=== PATIENT | male | born 1940 | race Caucasian/White ===

== ENCOUNTER 2017-04-25 09:13 | Inpatient (IN) | payer MEDICARE ==
[~2017-04-25] VITALS: Ht 175.3 cm; Wt 98.7 kg
[2017-04-25] VITALS (21 sets, daily range): BP systolic 128–170; BP diastolic 65–98; PULSE 49–69; RESP 18–26; TEMP 97.6–98; O2SAT 95–97
[2017-04-25] MEDS ORDERED: IODIXANOL 320 MG/ML 10 ML VIAL (for Rad CT) IVCONTRAST ONE (09:14)
[2017-04-25 09:27] LABS: I-STAT POTASSIUM 4.4 MMOL/L (3.5-4.9); I-STAT SODIUM 141 MMOL/L (138-146)
[2017-04-25 09:30] LABS: AUTOMATED NEUTROPHIL # 5.2 TH/MM3 (1.8-7.7); BASOPHIL % 0.3 % (0.0-2.0); EOSINOPHIL # 0.2 TH/MM3 (0-0.4); EOSINOPHIL % 2.8 % (0.0-4.0); HEMATOCRIT 41.7 % (39.0-51.0); HEMO FLAGS DIFF FINAL; LYMPH % 27.3 % (9.0-44.0); LYMPHOCYTE # 2.2 TH/MM3 (1.0-4.8); MEAN CELL VOLUME 92.5 FL (80.0-100.0); MEAN CORPUSCULAR HEMOGLOBIN 31.2 PG (27.0-34.0); MEAN CORPUSCULAR HGB CONC 33.7 % (32.0-36.0); MONO % 5.8 % (0.0-8.0); NEUT % 63.8 % (16.0-70.0); PLATELET COUNT 140 TH/MM3 (150-450); RED BLOOD COUNT 4.51 MIL/MM3 (4.50-5.90); RED CELL DISTRIBUTION WIDTH 12.8 % (11.6-17.2); WHITE BLOOD COUNT 8.1 TH/MM3 (4.0-11.0)
--- NOTE | 2017-04-25 09:31 | RADRPT ---
EXAM DATE/TIME: 04/25/2017 09:13 [facility] COMPARISON: No previous studies available for comparison. INDICATIONS : Stroke alert, slurred speech. RADIATION DOSE: 56.35 CTDIvol (mGy) This report was called to Dr. Warner at 0928. MEDICAL HISTORY : Non-responsive. SURGICAL HISTORY : Non-responsive. ENCOUNTER: Initial ACUITY: 1 day PAIN SCALE: Non-responsive LOCATION: chest TECHNIQUE: Multiple contiguous axial images were obtained of the head. Using automated exposure control and adj ustment of the mA and/or kV according to patient size, radiation dose was kept as low as reasonably a chievable to obtain optimal diagnostic quality images. DICOM format image data is available electro nically for review and comparison. FINDINGS: CEREBRUM: Mild diffuse cerebral volume loss. The ventricles are normal for age. No evidence of midline shift, mass lesion, hemorrhage or acute infarction. No extra-axial fluid collections are seen. POSTERIOR FOSSA: The cerebellum and brainstem are intact. The 4th ventricle is midline. The cerebellopontine angle i s unremarkable. EXTRACRANIAL: The visualized portion of the orbits is intact. SKULL: The calvaria is intact. No evidence of skull fracture. CONCLUSION: 1. No acute intracranial abnormality. Francisco Stone MD on April 25, 2017 at 9:27 Board Certified Radiologist. This report was verified electronically.
[2017-04-25 09:40] LABS: APTT (PATIENT) 25.9 SEC (24.3-30.1); PROTHROMBIN TIME - PATIENT 10.6 SEC (9.8-11.6)
[2017-04-25] MEDS ORDERED: ASPIRIN 325 MG TAB PO ONE ×2 (09:45→11:45)
[2017-04-25] MEDS ORDERED: VERAPAMIL HCL 5 MG/2 ML VIAL ONE (09:47)
[2017-04-25] MEDS ORDERED: ASPI81CH37 CHEW (09:51)
[2017-04-25] MEDS ORDERED: SIMV40TA PO (09:51)
[2017-04-25] MEDS ORDERED: BISO10TA2 PO (09:51)
[2017-04-25] MEDS ORDERED: FENO134C PO (09:51)
[2017-04-25] MEDS ORDERED: TAMS0.4C4 PO (09:51)
[2017-04-25] MEDS ORDERED: MIDAZOLAM HCL 2 MG/2 ML VIAL ONE (09:54)
[2017-04-25 10:04] LABS: CREATINE KINASE 51 U/L (39-308)
--- NOTE | 2017-04-25 10:04 | RADRPT ---
EXAM DATE/TIME: 04/25/2017 09:13 [facility] COMPARISON: No previous studies available for comparison. INDICATIONS : Stroke alert, slurred speech. IV CONTRAST: 50 cc Visipaque (iodixanol) IV ; Cumulative dose for multiple exams. RADIATION DOSE: 15.25 CTDIvol (mGy) ; Combined studies MEDICAL HISTORY : Non-responsive. SURGICAL HISTORY : Non-responsive. ENCOUNTER: Initial ACUITY: 1 day PAIN SCALE: Non-responsive LOCATION: neck Elevated flow velocities and ICA/CCA ratios have been found to correlate with increased degrees of vessel stenosis, calculated as percentage of diameter relative to a normal segment of distal ICA/CCA. TECHNIQUE: Volumetric scanning was performed using a multirow detector CT scanner. The data was post processed with a variety of visualization algorithms including full-volume maximum intensity projection, multip lanar sliding thin-slab reformation, curved-planar reformation, and surface-rendering techniques. Us ing automated exposure control and adjustment of the mA and/or kV according to patient size, radiatio n dose was kept as low as reasonably achievable to obtain optimal diagnostic quality images. DICOM f ormat image data is available electronically for review and comparison. FINDINGS: AORTIC ARCH: There is a three-vessel origin of the great vessels from the aorta. No evidence of ostial narrowing. RIGHT CAROTID: The common carotid artery is intact. The carotid bulb has a normal configuration without ulceration o r narrowing. The internal carotid artery lumen is smooth without stenosis. The external carotid jimena ry is intact. LEFT CAROTID: The common carotid artery is intact. The carotid bulb has a normal configuration without ulceration or narrowing. The internal carotid artery lumen is smooth without stenosis. The external carotid ar vicky is intact. VERTEBRALS: Vertebrals are patent bilaterally, left side slightly dominant. No stenotic lesions are seen. CONCLUSION: Negative study Richard Escobar MD on April 25, 2017 at 9:59 Board Certified Radiologist. This report was verified electronically.
--- NOTE | 2017-04-25 10:06 | PD ---
HPI Chief Complaint: Stroke Alert Time Seen by Provider: 09:17 Travel History International Travel<30 days: No Contact w/Intl Traveler<30days: No Traveled to known affect area: No History of Present Illness HPI 77-year-old male presents by ambulance with the note of right arm weakness that occurred at 4 AM this morning he went back to sleep but when he awoke at 7 AM his arm was better but he just felt abnormal. He walked downstairs and was able to talk okay for a little bit but then he got confused talking to his sister. His onset of difficulty with his speech was at about 8 AM. In route by ambulance his symptoms resolved. Here patient denies any complaints at this time. He does note he has history of mini strokes and takes a baby aspirin. Quality was confused with difficulty getting out his words. Severity is resolved. PFSH Past Medical History Narrative Medical Hypertension, high cholesterol, TIAs, bph Cerebrovascular Accident: Yes Past Surgical History Narrative Surgical cataract Social History Alcohol Use: Yes (alcohol daily at night) Tobacco Use: No Allergies-Medications (Allergen,Severity, Reaction): Coded Allergies: No Known Allergies (Verified Allergy, Unknown, 04/25/17) Reported Meds & Prescriptions Reported Meds & Active Scripts Active Reported Tamsulosin (Tamsulosin HCl) 0.4 Mg Cap 0.4 Mg PO HS Aspirin Low Dose (Aspirin) 81 Mg Chew 81 Mg CHEW DAILY Bisoprolol-Hydrochlorothiazide 10-6.25 Mg Tab 1 Tab PO DAILY Fenofibrate Micronized 134 Mg Cap 134 Mg PO DAILY Simvastatin 40 Mg Tab 40 Mg PO HS Review of Systems Except as stated in HPI: all other systems reviewed are Neg Physical Exam Narrative GENERAL: Well-nourished, well-developed patient. SKIN: Warm and dry. HEAD: Normocephalic and atraumatic. EYES: No injection or drainage. ENT: No nasal drainage noted. NECK: Supple, trachea midline. CARDIOVASCULAR: Regular rate and rhythm RESPIRATORY: Breath sounds equal bilaterally. No accessory muscle use. GASTROINTESTINAL: Abdomen soft, non-tender, nondistended. EXTREMITIES: No edema. BACK: Nontender without obvious deformity. NEUROLOGICAL: Awake and alert. Motor and sensory grossly within normal limits. Normal speech. 5 out of 5 in all 4 extremities, equal grasp bilaterally, no facial droop Data Data Last Documented VS Vital Signs Date Time Temp Pulse Resp B/P (MAP) Pulse Ox O2 Delivery O2 Flow Rate FiO2 04/25/17 12:00 56 26 170/83 (112) 97 Room Air 04/25/17 09:13 97.6 Orders Orders Diet Npo (04/25/17 Breakfast) Activity Bed Rest (04/25/17 ) Electrocardiogram (04/25/17 ) I-Stat Creatinine (04/25/17:17) I-Stat Profile (04/25/17:17) Prothrombin Time / Inr (Pt) (04/25/17:17) Act Partial Throm Time (Ptt) (04/25/17:17) Complete Blood Count With Diff (04/25/17:) Fibrinogen (04/25/17:17) Creatine Kinase (Cpk) (04/25/17:17) Troponin I (04/25/17:17) Ua Includes Microscopic (04/25/17:17) Type And Screen (04/25/17 09:17) Ct Brain W/O Iv Contrast(Rout) (04/25/17 ) Chest, Single Ap (04/25/17 ) Cta Brain W Iv Contrast W 3d (04/25/17 09:17) Cta Neck W Iv Contrast W 3d (04/25/17 09:17) Blood Glucose (04/25/17:17) Ecg Monitoring (04/25/17 09:17) Nursing Bedside Swallow Assess .ONCE (04/25/17 09:17) Iv Access Insert/Monitor (04/25/17 09:17) NPO (04/25/17:17) Oximetry (04/25/17 09:17) Oxygen Administration (04/25/17:17) Resp Oxygen Toro C Titrat 1-4 L (04/25/17 09:17) Cath For Specimen (04/25/17 09:17) Iodixanol 320 Inj (Rad Ct) (Visipaque 32 (04/25/17 09:14) Aspirin (Aspirin) (04/25/17 09:45) Nursing Bedside Swallow Assess .ONCE (04/25/17 09:40) Verapamil Inj (Isoptin Inj) (04/25/17 09:47) Mri Brain Perfusion W Contrast (04/25/17 ) Fentanyl Inj (Fentanyl Inj) (04/25/17 09:54) Midazolam Inj (Versed Inj) (04/25/17 09:54) Gadodiamide Pf Inj (Omniscan Pf Inj) (04/25/17 10:43) Aspirin (Aspirin) (04/25/17 11:45) Heparin-D5w 25,000 U/250 Ml (Heparin-D5w (04/25/17 11:45) Cbc No Diff, Includes Plts (04/28/17 06:00) Admit Order (Ed Use Only) (04/25/17 12:12) Neuro Checks SHORTY.Q1H (04/25/17 12:12) Labs Laboratory Tests Test 04/25/17 09:15 04/25/17 12:05 White Blood Count 8.1 TH/MM3 Red Blood Count 4.51 MIL/MM3 Hemoglobin 14.1 GM/DL Bedside Hemoglobin 14.3 G/DL Hematocrit 41.7 % Bedside Hematocrit 42.0 % Mean Corpuscular Volume 92.5 FL Mean Corpuscular Hemoglobin 31.2 PG Mean Corpuscular Hemoglobin Concent 33.7 % Red Cell Distribution Width 12.8 % Platelet Count 140 TH/MM3 Mean Platelet Volume 10.1 FL Neutrophils (%) (Auto) 63.8 % Lymphocytes (%) (Auto) 27.3 % Monocytes (%) (Auto) 5.8 % Eosinophils (%) (Auto) 2.8 % Basophils (%) (Auto) 0.3 % Neutrophils # (Auto) 5.2 TH/MM3 Lymphocytes # (Auto) 2.2 TH/MM3 Monocytes # (Auto) 0.5 TH/MM3 Eosinophils # (Auto) 0.2 TH/MM3 Basophils # (Auto) 0.0 TH/MM3 CBC Comment DIFF FINAL Differential Comment Prothrombin Time 10.6 SEC Prothromb Time International Ratio 1.0 RATIO Activated Partial Thromboplast Time 25.9 SEC Fibrinogen 279 mg/dL Bedside Sodium 141 MMOL/L Bedside Potassium 4.4 MMOL/L Bedside Chloride 105 MMOL/L Bedside Blood Urea Nitrogen 22 MG/DL Bedside Creatinine 1.1 MG/DL Bedside Glucose 125 MG/DL Total Creatine Kinase 51 U/L Troponin I LESS THAN 0.02 NG/ML Urine Color YELLOW Urine Turbidity CLEAR Urine pH 7.0 Urine Specific Henry 1.043 Urine Protein NEG mg/dL Urine Glucose (UA) NEG mg/dL Urine Ketones NEG mg/dL Urine Occult Blood NEG Urine Nitrite NEG Urine Bilirubin NEG Urine Urobilinogen LESS THAN 2.0 MG/DL Urine Leukocyte Esterase NEG Urine RBC 1 /hpf Urine WBC LESS THAN 1 /hpf MDM Medical Screen Exam Complete: Yes Emergency Medical Condition: Yes Differential Diagnosis TIA, mass, bleed, stroke Narrative Course Will check stroke alert protocol and given prior speech changes check CTAs. Patient currently without symptoms likely TIA. We'll discuss with neurologist On recheck patient without new symptoms. Patient updated. Agrees to MRI On recheck patient without new symptoms and stroke scale is still 0. Agrees to ICU admission with close neuro checks and heparin blood thinner. Family at bedside Critical Care Narrative Aggregate critical care time was 35 minutes. Time to perform other separately billable procedures was not included in the critical care time. My time did not include minutes spent treating any other patients simultaneously or on activities that did not directly contribute to the patient's treatment. The services I provided to this patient were to treat and/or prevent clinically significant deterioration that could result in: stroke, I provided critical care services requiring my management, as noted below: Chart data review, documentation time, medication orders and management, vital sign assessments/reviewing monitor data, ordering and reviewing lab tests, ordering and interpreting/reviewing x-rays and diagnostic studies, care of the patient and discussion of the patient with the admitting physicians. Stroke Alert NIHSS NIH Stroke Scale Result: 0 NIHSS Time Completed: 09:16 Procedures Interpretation(s) CBC & BMP Diagram 04/25/17 09:15 Last 24 hours Impressions Neck CTA 04/25/17916 Signed Impressions: Service Date/Time: Tuesday, April 25, 2017 09:13 - CONCLUSION: Negative study Richard Escobar MD Head CTA 04/25/17916 Signed Impressions: Service Date/Time: Tuesday, April 25, 2017 09:13 - CONCLUSION: 1. 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 Findings were personally discussed with Drs. Warner and Antonio. Patient's symptoms have resolved with current NIH score of zero. There is concern for delayed collateral circulation failure. Following additional consultation with IR colleagues, patient is scheduled for urgent MRI perfusion to assess collateral flow. Francisco Stone MD Head CT 04/25/17 0000 Signed Impressions: Service Date/Time: Tuesday, April 25, 2017 09:13 - CONCLUSION: 1. No acute intracranial abnormality. Francisco Stone MD Chest X-Ray 04/25/17 0000 Signed Impressions: Service Date/Time: Tuesday, April 25, 2017 09:41 - CONCLUSION: Elevated right diaphragm and mild basilar parenchymal opacities of undetermined chronicity Richard Escobar MD Physician Communication Physician Communication Dr. Mosqueda agrees to no TPA given symptoms at 4 AM and now stroke scale of 0 at 920 when discussed Radiologist states ct negative at 929 radiologist requests mri perfusion stat at 951 and aspirin held while awaiting testing given cta findings dr cleary. states to admit to icu with aspirin and heparin after discussing with neurology with q15 minute neurochecks in icu as high risk for large stroke given cta brain findings dr mosqueda states to dose with aspirin and heparin with close neurochecks in icu dr shah states to admit to dr carr in [facility] and will notify him Diagnosis Diagnosis: Primary Impression: TIA (transient ischemic attack) Qualified Codes: G45.9 - Transient cerebral ischemic attack, unspecified Admitting Physician Requests: Admit Lissette Warner MD Apr 25, 2017 10:06
--- NOTE | 2017-04-25 10:07 | RADRPT ---
EXAM DATE/TIME: 04/25/2017 09:41 [facility] COMPARISON: No previous studies available for comparison. INDICATIONS : Stroke alert. MEDICAL HISTORY : Unknown SURGICAL HISTORY : unknown ENCOUNTER: Initial ACUITY: 1 day PAIN SCORE: Non-responsive. LOCATION: Bilateral chest FINDINGS: No slight asymmetric elevation of the right diaphragm of undetermined chronicity and mild basilar par enchymal opacity bilaterally. Cardiac contours are grossly satisfactory for technique and projection. CONCLUSION: Elevated right diaphragm and mild basilar parenchymal opacities of undetermined chronicity Richard Escobar MD on April 25, 2017 at 10:04 Board Certified Radiologist. This report was verified electronically.
--- NOTE | 2017-04-25 10:08 | RADRPT ---
EXAM DATE/TIME: 04/25/2017 09:13 [facility] COMPARISON: No previous studies available for comparison. INDICATIONS : Stroke alert, slurred speech. IV CONTRAST: 50 cc Visipaque (iodixanol) IV ; Cumulative dose for multiple exams. RADIATION DOSE: 15.25 CTDIvol (mGy) ; Combined studies MEDICAL HISTORY : Non-responsive. SURGICAL HISTORY : Non-responsive. ENCOUNTER: Initial ACUITY: 1 day PAIN SCALE: Non-responsive LOCATION: cranial TECHNIQUE: Volumetric scanning was performed using a multi-row detector CT scanner. The data was post processed with a variety of visualization algorithms including full volume maximum intensity projection, multi -planar sliding thin slab reformation, curved planar reformation, and surface rendering techniques. Using automated exposure control and adjustment of the mA and/or kV according to patient size, radiat ion dose was kept as low as reasonably achievable to obtain optimal diagnostic quality images. DICO M format image data is available electronically for review and comparison. FINDINGS: Anterior circulation: Examination is abnormal. There is occlusion of the distal left M1 segment at the bifurcation. More di stal left MCA branches in the high convexities are patent, likely opacified by collateral circulation . Anterior cerebral arteries are patent bilaterally. Right MCA branches are patent. There is no evide nce for aneurysm and no evidence for vascular malformation. Posterior circulation: Symmetric distal vertebral arteries with flow extending to basilar artery. There is a origin of the left [employer]. The right P-comm is patent. Portion of the right [employer] is very small in caliber and subo ptimally assessed. Otherwise, there is no evidence for aneurysm, large vessel occlusion, and no evide nce for vascular malformation. CONCLUSION: 1. Distal left M1 occlusion with apparent collateral opacification of high convexity distal MCA branc hes. Findings were personally discussed with Drs. Warner and Antonio. Patient's symptoms have resolved with cu rrent NIH score of zero. There is concern for delayed collateral circulation failure. Following addit ional consultation with IR colleagues, patient is scheduled for urgent MRI perfusion to assess collat eral flow. Francisco Stone MD on April 25, 2017 at 9:36 Board Certified Radiologist. This report was verified electronically.
[2017-04-25] MEDS ORDERED: GADODIAMIDE PF 287 MG/ML 20 ML VIAL (for RAD MRI) IVCONTRAST ONE (10:43)
--- NOTE | 2017-04-25 11:33 | RADRPT ---
EXAM DATE/TIME: 04/25/2017 10:17 [facility] COMPARISON: No previous studies available for comparison. INDICATIONS : Aphasia. Slurred speech. CONTRAST: 20 cc Omniscan (gadodiamide) IV MEDICAL HISTORY : Hypertension. TIA SURGICAL HISTORY : Cataracts. ENCOUNTER: Subsequent ACUITY: 1 day PAIN SCORE: 0/10 LOCATION: head. TECHNIQUE: Whole brain MR perfusion was performed. Parametric maps generated included time to peak, mean transi t time, cerebral blood volume and cerebral blood flow. FINDINGS: D3 blood flow involving volume studies are unremarkable though there is prolongation of the time to p eak and mean transit time. Weighted images demonstrate no abnormality. CONCLUSION: 1. No evidence of flow volume mismatch or of of acute infarct. 2. Prolongation of flow in the left middle cerebral artery territory like related to collateral flow via pial vessels Alexandr Gasca MD on April 25, 2017 at 11:22 Board Certified Radiologist. This report was verified electronically.
[2017-04-25] MEDS: HEPARIN-D5W 25,000 U/250 ML 250 ML IV SCH (12:01)
[2017-04-25 12:38] LABS: BLOOD, URINE NEG (NEG); GLUCOSE,URINE NEG (NEG); KETONE, URINE NEG (NEG); NITRITE,URINE NEG (NEG); URINE COLOR YELLOW (YELLW/STRAW)
[2017-04-25] MEDS: ASPIRIN 81 MG CHEW TAB CHEW SCH (13:15)
--- NOTE | 2017-04-25 14:05 | EKG ---
Date Performed: 04/25/2017 Time Performed: 10:00:36 PTAGE: 77 years EKG: SINUS BRADYCARDIA MODERATE T-WAVE ABNORMALITY, CONSIDER LATERAL ISCHEMIA ABNORMAL ECG NO PREVIOUS TRACING DOCTOR: Logan Jernigan Interpretating Date/Time 04/25/2017 14:04:30
--- NOTE | 2017-04-25 14:25 | HHI.HP ---
HPI Service Critical Care Medicine Primary Care Physician No Primary Care Physician Admission Diagnosis stroke Diagnosis: (1) TIA (transient ischemic attack) Diagnosis: Principal (2) Left M1 occlusion Diagnosis: Principal (3) Alcohol abuse Diagnosis: Secondary (4) Hypertension Diagnosis: Secondary (5) Dyslipidemia Diagnosis: Secondary (6) History of TIA (transient ischemic attack) Diagnosis: Secondary Chief Complaint: R arm weaknes, confusion TIA Travel History International Travel<30 Days: No Contact w/Intl Traveler <30 Da: No Traveled to Known Affected Are: No History of Present Illness Patient is a 77-year-old male with past medical history of hypertension, dyslipidemia, history of TIA who presented to [place] ED by ambulance as stroke alert. Noted to have right arm weakness that occurred at 4 AM; he went back to sleep. When he got up at 7 AM, he was confused and had difficulty with ppeech about 8 AM. En route to hospital his symptoms resolved. He has history of TIA in the past. CT head was negative for acute findings. CTA brain showed Distal left M1 occlusion with apparent collateral opacification of high convexity distal MCA branches. Because of current NIH score of zero, no intervention planned. If clinical deterioration, IR is to be contacted emergently. Started on IV Heparin and ASA by Dr. Aden Review of Systems ROS Limitations: Other (as per HPI) Past Family Social History Allergies: Coded Allergies: No Known Allergies (Verified Allergy, Unknown, 04/25/17) Past Medical History Hypertension Dyslipidemia TIA in the past BPH Past Surgical History Cataract surgery Reported Medications Tamsulosin (Tamsulosin HCl) 0.4 Mg Cap 0.4 Mg PO HS Aspirin Low Dose (Aspirin) 81 Mg Chew 81 Mg CHEW DAILY Bisoprolol-Hydrochlorothiazide 10-6.25 Mg Tab 1 Tab PO DAILY Fenofibrate Micronized 134 Mg Cap 134 Mg PO DAILY Simvastatin 40 Mg Tab 40 Mg PO HS Active Ordered Medications On Heparin gtt Received ASA Family History No history of early stroke or CAD Social History Drinks 3-4 beers daily No smoking Physical Exam Vital Signs Vital Signs Date Time Temp Pulse Resp B/P (MAP) Pulse Ox O2 Delivery O2 Flow Rate FiO2 04/25/17 13:31 52 19 156/78 (104) 96 Room Air 04/25/17 13:00 52 20 139/74 (95) 96 Room Air 04/25/17 12:30 50 20 148/78 (101) 97 Room Air 04/25/17 12:00 56 26 170/83 (112) 97 Room Air 04/25/17 11:30 56 22 159/79 (105) 96 04/25/17 11:00 50 152/74 (100) 04/25/17 10:30 69 156/98 (117) 04/25/17 10:17 22 96 Room Air 04/25/17 10:00 56 154/75 (101) 04/25/17 09:58 96 Room Air 04/25/17 09:58 96 Room Air 04/25/17 09:45 56 21 136/67 (90) 95 Room Air 04/25/17 09:30 63 136/76 (96) 04/25/17 09:20 61 20 159/72 (101) 95 Room Air 04/25/17 09:13 97.6 61 22 148/72 (97) 96 Room Air Physical Exam GENERAL: Well-nourished, well-developed patient. Lying in bed no acute distress SKIN: Warm and dry. HEAD: Normocephalic and atraumatic. EYES: No injection or drainage. ENT: No nasal drainage noted. Airway patent NECK: Supple, trachea midline. CARDIOVASCULAR: Regular rate and rhythm. No murmurs RESPIRATORY: Breath sounds equal bilaterally. No accessory muscle use. GASTROINTESTINAL: Abdomen soft, non-tender, nondistended. EXTREMITIES: No edema. NEUROLOGICAL: Awake and alert. Motor and sensory grossly within normal limits. Normal speech. 5 out of 5 in all 4 extremities Laboratory Laboratory Tests Test 04/25/17 09:15 04/25/17 12:05 White Blood Count 8.1 Red Blood Count 4.51 Hemoglobin 14.1 Bedside Hemoglobin 14.3 Hematocrit 41.7 Bedside Hematocrit 42.0 Mean Corpuscular Volume 92.5 Mean Corpuscular Hemoglobin 31.2 Mean Corpuscular Hemoglobin Concent 33.7 Red Cell Distribution Width 12.8 Platelet Count 140 Mean Platelet Volume 10.1 Neutrophils (%) (Auto) 63.8 Lymphocytes (%) (Auto) 27.3 Monocytes (%) (Auto) 5.8 Eosinophils (%) (Auto) 2.8 Basophils (%) (Auto) 0.3 Neutrophils # (Auto) 5.2 Lymphocytes # (Auto) 2.2 Monocytes # (Auto) 0.5 Eosinophils # (Auto) 0.2 Basophils # (Auto) 0.0 CBC Comment DIFF FINAL Differential Comment Prothrombin Time 10.6 Prothromb Time International Ratio 1.0 Activated Partial Thromboplast Time 25.9 Fibrinogen 279 Bedside Sodium 141 Bedside Potassium 4.4 Bedside Chloride 105 Bedside Blood Urea Nitrogen 22 Bedside Creatinine 1.1 Bedside Glucose 125 Total Creatine Kinase 51 Troponin I LESS THAN 0.02 Urine Color YELLOW Urine Turbidity CLEAR Urine pH 7.0 Urine Specific [place] 1.043 Urine Protein NEG Urine Glucose (UA) NEG Urine Ketones NEG Urine Occult Blood NEG Urine Nitrite NEG Urine Bilirubin NEG Urine Urobilinogen LESS THAN 2.0 Urine Leukocyte Esterase NEG Urine RBC 1 Urine WBC LESS THAN 1 Result Diagram: 04/25/[address] head normal CTA brain shows M1 occlusion CTA neck no acute findings Caprini VTE Risk Assessment Caprini VTE Risk Assessment: Mod/High Risk (score >= 2) Caprini Risk Assessment Model Point Value = 1 Point Value = 2 Point Value = 3 Point Value = 5 Age 41-60 Minor surgery BMI > 25 kg/m2 Swollen legs Varicose veins or History of unexplained or recurrent spontaneous Oral contraceptives or hormone replacement Sepsis (< 1 month) Serious lung disease, including pneumonia (< 1 month) Abnormal pulmonary function Acute myocardial infarction Congestive heart failure (< 1 month) History of inflammatory bowel disease Medical patient at bed rest Age 61-74 Arthroscopic surgery Major open surgery (> 45 min) Laparoscopic surgery (> 45 min) Malignancy Confined to bed (> 72 hours) Immobilizing plaster cast Central venous access Age >= 75 History of VTE Family history of VTE Factor V Leiden Prothrombin [id number] Lupus anticoagulant Anticardiolipin antibodies Elevated serum homocysteine Heparin-induced thrombocytopenia Other congenital or acquired thrombophilia Stroke (< 1 month) Elective arthroplasty Hip, pelvis, or leg fracture Acute spinal cord injury (< 1 month) Prophylaxis Regimen Total Risk Factor Score Risk Level Prophylaxis Regimen 0-1 Low Early ambulation 2 Moderate Order ONE of the following: *Sequential Compression Device (SCD) *Heparin 5000 units SQ BID 3-4 Higher Order ONE of the following medications: *Heparin 5000 units SQ TID *Enoxaparin/Lovenox 40 mg SQ daily (WT < 150 kg, CrCl > 30 mL/min) *Enoxaparin/Lovenox 30 mg SQ daily (WT < 150 kg, CrCl > 10-29 mL/min) *Enoxaparin/Lovenox 30 mg SQ BID (WT < 150 kg, CrCl > 30 mL/min) AND/OR *Sequential Compression Device (SCD) 5 or more Highest Order ONE of the following medications: *Heparin 5000 units SQ TID (Preferred with Epidurals) *Enoxaparin/Lovenox 40 mg SQ daily (WT < 150 kg, CrCl > 30 mL/min) *Enoxaparin/Lovenox 30 mg SQ daily (WT < 150 kg, CrCl > 10-29 mL/min) *Enoxaparin/Lovenox 30 mg SQ BID (WT < 150 kg, CrCl > 30 mL/min) AND *Sequential Compression Device (SCD) Assessment and Plan Assessment and Plan NEURO: TIA Acute left M1 occlusion Alcohol abuse History of TIA - Frequent neuro check, ICU admission - Started on IV heparin, continue home aspirin - Minimize sedation except for Ativan for possible agitation/withdrawal - Supplement multivitamin thiamine - Permissive hypertension - Check TSH, B12, folic acid RESP: - IS q1hr while awake CV: Hypertension Dyslipidemia - Target systolic blood pressure 160-180 - Normal saline IV fluids 100 ml per hour - 2d echo GI: - Heart healthy diet - Famotidine. Bowel regimen : - Monitor renal function closely. ID: - Monitor for infection HEME: - Monitor CBC, CMP, coags - Continue IV Heparin ENDO: - Electrolyte replacement protocol PROPH: - Bilateral lower extremity SCDs. IV heparin, famotidine . LINES: - Utilize peripheral IVs, central line if needed Level 3 new consult [facility] Dr. Page to assume care in am Code Status Full Discussed Condition With Dr. Stone, Dr. Pathak, Dr. Aden Problem Qualifiers (1) TIA (transient ischemic attack): Qualified Codes: G45.9 - Transient cerebral ischemic attack, unspecified Lia Ramos MD Apr 25, 2017 14:25
[2017-04-25] MEDS ORDERED: MISCELLANEOUS NURSING INFORMATION XX SCH (14:30)
[2017-04-25] MEDS ORDERED: CHLORHEXIDINE GLUCONATE 2 % 1 PACK (2 CLOTHS) TOP PRN (14:30)
[2017-04-25] MEDS ORDERED: LACTULOSE SYRUP 20 GM/30 ML CUP PO PRN (14:30)
[2017-04-25] MEDS ORDERED: LORazepam 2 MG/ML VIAL IV PUSH PRN (14:30)
[2017-04-25] MEDS ORDERED: SODIUM CHLORIDE 0.9% FLUSH 10 ML FLUSH IV FLUSH PRN (14:30)
[2017-04-25] MEDS ORDERED: BISACODYL 10 MG SUPP RECTAL PRN (14:30)
--- NOTE | 2017-04-25 15:16 | ECHRPT ---
Indication: CVA/TIA CONCLUSIONS The left ventricular systolic function is low normal with an estimated ejection fraction in the rang e of 50- 55%. Wall thickness is measured at the upper limits of normal. Normal left ventricular size. There is mild tricuspid valve regurgitation. The estimated pulmonary arterial pressure is 30 mmHg. BP: / HR: Rhythm: Sinus MEASUREMENTS (Male / Female) Normal Values Technical Quality:Fair 2D ECHO LV Diastolic Diameter PLAX 5.3 cm 4.2 - 5.9 / 3.9 - 5.3 cm LV Systolic Diameter PLAX 4.0 cm IVS Diastolic Thickness 1.1 cm 0.6 - 1.0 / 0.6 - 0.9 cm LVPW Diastolic Thickness 1.1 cm 0.6 - 1.0 / 0.6 - 0.9 cm LV Relative Wall Thickness 0.4 LVOT Diameter 2.4 cm M-MODE Aortic Root Diameter MM 3.2 cm LA Systolic Diameter MM 4.9 cm LA Ao Ratio MM 1.5 AV Cusp Separation MM 2.2 cm DOPPLER AV Peak Velocity 110.0 cm/s AV Peak Gradient 4.8 mmHg LVOT Peak Velocity 99.7 cm/s LVOT Peak Gradient 4.0 mmHg AV Area Cont Eq pk 4.1 cm MR Peak Velocity 350.0 cm/s MR Peak Gradient 49.0 mmHg Mitral E Point Velocity 72.6 cm/s Mitral A Point Velocity 55.8 cm/s Mitral E to A Ratio 1.3 LV E' Lateral Velocity 8.9 cm/s Mitral E to LV E' Lateral Ratio 8.2 LV E' Septal Velocity 6.6 cm/s Mitral E to LV E' Septal Ratio 11.0 TR Peak Velocity 225.0 cm/s TR Peak Gradient 20.3 mmHg Right Atrial Pressure 10.0 mmHg Pulmonary Artery Systolic Pressu 30.3 mmHg Right Ventricular Systolic Press 30.3 mmHg PV Peak Velocity 97.7 cm/s PV Peak Gradient 3.8 mmHg FINDINGS LEFT VENTRICLE The left ventricular systolic function is low normal with an estimated ejection fraction in the rang e of 50- 55%. Wall thickness is measured at the upper limits of normal. Normal left ventricular size. RIGHT VENTRICLE Normal right ventricular size and systolic function. LEFT ATRIUM The left atrial size is normal. RIGHT ATRIUM The right atrial size is normal. ATRIAL SEPTUM Normal atrial septal thickness without atrial level shunting by limited color doppler interrogation. AORTA The aortic root and proximal ascending aorta are normal in size on limited imaging. MITRAL VALVE Structurally normal mitral valve. No mitral valve stenosis or regurgitation. AORTIC VALVE Trileaflet aortic valve. No aortic valve stenosis or regurgitation. TRICUSPID VALVE There is mild tricuspid valve regurgitation. The estimated pulmonary arterial pressure is 30.3 mmHg. PULMONARY VALVE No pulmonary valve regurgitation or stenosis. VESSELS The inferior vena cava is normal in size. PERICARDIUM No pericardial effusion. Royal Whitaker MD, FACC (Electronically Signed) Final Date:25 April 2017 15:15
[2017-04-25] MEDS: SODIUM CHLOR 0.9% 1000 ML INJ 1,000 ML IV SCH ×2 (15:22→22:43)
[2017-04-25] MEDS ORDERED: RESP: ALBUTEROL 2.5 MG/IPRATROPIUM 0.5 MG NEB (PRN) INH (16:00)
--- NOTE | 2017-04-25 19:44 | MB ---
cc: LAN LIEBERMAN M.D. DATE OF CONSULTATION 04/25/17 DATE OF 1940 AGE 77 REASON FOR CONSULTATION Stroke alert. HISTORY OF PRESENT ILLNESS The patient is a 77-year-old man with a history of hypertension, hyperlipidemia, TIA in the past. Came in with a stroke alert. Noted to have initially a 4:00 a.m. right arm weakness but he was not sure if his arm had fallen asleep and then subsequently he states he went back to sleep, when he woke up it was normal but shortly thereafter he started having what is described as aphasia. He was rushed to the hospital. His sister called the paramedics. He lives in [place]. When he came here CT did not show anything acute and his NIH stroke scale was now zero, back to baseline. CTA was performed and found a distal left M1 occlusion with collateral opacification of high convexity in the distal MCA branches. He is placed on heparin and aspirin. He is doing well now. His speech is normal. He just feels like he is a little slow to respond but no weakness, otherwise. No trouble swallowing. No chest pain, shortness of breath. He has a history as stated of hypertension, hyperlipidemia, TIA in the past and BPH. PAST SURGICAL HISTORY Cataracts. MEDICATIONS His home medicines: 1. Tamsulosin. 2. Baby aspirin. 3. Lexapro. 4. Hydrochlorothiazide. 5. Fenofibrate. 6. Simvastatin. FAMILY HISTORY There is no stroke history noncontributory otherwise. SOCIAL HISTORY He lives in [place]. He does not smoke, drinks a few beers daily. PHYSICAL EXAMINATION VITAL SIGNS: Temperature is 97.6, heart rate 52, respiratory rate 23, blood pressure 150/77, satting at 97% room air. NECK: His neck is supple. There are no carotid bruits. HEART: Regular. NEURO: He is awake, alert. He is oriented. His speech is intact. Pupils are reactive. Face symmetrical. Tongue midline. Motor olivera no deficits. Cerebellar testing is normal. Strength intact throughout. Toes are downgoing. DTRs are 1+. Sensory normal. Gait is withheld, he is at bedrest. LABORATORY DATA Labs were reviewed. His platelets 140,000. Coag panel is normal. Chemistries, glucose 125. Urine unremarkable. IMAGING STUDIES As stated, head CTA shows distal left M1 occlusion with apparent collateral opacification of the high convexity at distal MCA branches. His neck CTA was negative for any stenosis. He had an MRA of the brain which for flow without any volume mismatch of any acute infarct. There was prolongation of flow in the left MCA related to collateral flow via the pial vessels per report. IMPRESSION TIA symptoms due to the left M1 occlusion. Recommend continued heparin and bridging him with Eliquis. I would repeat his CTA of the algaaciq in a couple of weeks to see if there is any change via CT angiogram. In the meantime avoiding hypotension. Continue keeping his blood pressure between 120-160. PT, OT therapy and stable discharge planning. I would also go ahead and get a 2-D echo. Further recommendations will be made accordingly. If not done so a lipid panel should be added on. MD ISAIAH Lopez/RADHIKA /5:07 PM /7:33 PM
[2017-04-25] MEDS: FAMOTIDINE 20 MG TAB PO SCH (21:00)
[2017-04-25] MEDS: DOCUSATE SODIUM 50 MG/SENNA 8.6 MG TAB PO SCH (21:00)
[2017-04-25] MEDS ORDERED: MAGNESIUM HYDROXIDE SUSP 30 ML CUP PO PRN (21:00)
[2017-04-25] MEDS ORDERED: SENNOSIDES 8.6 MG TAB PO PRN (21:00)
[2017-04-25] MEDS: SODIUM CHLORIDE 0.9% FLUSH 10 ML FLUSH IV FLUSH SCH (21:00)
[2017-04-25] MEDS: PRAVASTATIN SOD 80 MG TAB PO SCH (21:00)
[2017-04-25 21:48] LABS: APTT (PATIENT) 34.5 SEC (24.3-30.1)
[2017-04-26] VITALS (10 sets, daily range): BP systolic 118–179; BP diastolic 64–84; PULSE 50–57; RESP 16–20; TEMP 97.6–98.5; O2SAT 94–97
[2017-04-26] MEDS: HEPARIN-D5W 25,000 U/250 ML 250 ML IV SCH (06:03)
[2017-04-26 06:21] LABS: AUTOMATED NEUTROPHIL # 3.7 TH/MM3 (1.8-7.7); BASOPHIL % 0.4 % (0.0-2.0); EOSINOPHIL # 0.3 TH/MM3 (0-0.4); EOSINOPHIL % 5.1 % (0.0-4.0); HEMATOCRIT 37.2 % (39.0-51.0); HEMO FLAGS DIFF FINAL; LYMPH % 29.5 % (9.0-44.0); LYMPHOCYTE # 1.9 TH/MM3 (1.0-4.8); MEAN CELL VOLUME 91.9 FL (80.0-100.0); MEAN CORPUSCULAR HEMOGLOBIN 31.3 PG (27.0-34.0); MONO % 7.1 % (0.0-8.0); NEUT % 57.9 % (16.0-70.0); PLATELET COUNT 127 TH/MM3 (150-450); RED BLOOD COUNT 4.05 MIL/MM3 (4.50-5.90); RED CELL DISTRIBUTION WIDTH 12.7 % (11.6-17.2); WHITE BLOOD COUNT 6.4 TH/MM3 (4.0-11.0)
[2017-04-26 06:37] LABS: APTT (PATIENT) 42.6 SEC (24.3-30.1)
[2017-04-26 06:42] LABS: ALT (GPT) 21 U/L (12-78); ANION GAP 7 MEQ/L (5-15); AST (GOT) 15 U/L (15-37); BICARBONATE 24.6 MEQ/L (21.0-32.0); BLOOD UREA NITROGEN 18 MG/DL (7-18); CHLORIDE 110 MEQ/L (98-107); GLOMERULAR FILTRATION RATE 82 ML/MIN (>89); MAGNESIUM 2.2 MG/DL (1.5-2.5); POTASSIUM 3.6 MEQ/L (3.5-5.1); SODIUM (NA) 142 MEQ/L (136-145)
[2017-04-26 07:09] LABS: ALKALINE PHOSPHATASE 47 U/L (45-117); TOTAL BILIRUBIN ADULT 0.5 MG/DL (0.2-1.0)
[2017-04-26] MEDS ORDERED: FENOFIBRATE 134 MG PO SCH (09:00)
[2017-04-26] MEDS: DOCUSATE SODIUM 50 MG/SENNA 8.6 MG TAB PO SCH (09:00)
[2017-04-26] MEDS: SODIUM CHLORIDE 0.9% FLUSH 10 ML FLUSH IV FLUSH SCH ×2 (09:00→22:18)
[2017-04-26] MEDS: FAMOTIDINE 20 MG TAB PO SCH ×2 (10:13→22:18)
[2017-04-26] MEDS: ASPIRIN 81 MG CHEW TAB CHEW SCH (10:14)
[2017-04-26] MEDS: CHLORHEXIDINE GLUCONATE 2 % 1 PACK (2 CLOTHS) TOP SCH (10:14)
[2017-04-26] MEDS: MULTIVITAMIN INJ 10 ML, THIAMINE INJ 100 MG, FOLIC ACID INJ 1 MG in SODIUM CHLORID 0.9%... IV SCH ×2 (10:57→11:01)
[2017-04-26] MEDS ORDERED: BISOPROLOL/HCTZ 10 MG/6.25 MG TAB PO SCH (13:00)
--- NOTE | 2017-04-26 13:30 | HHI.PR ---
Subjective Remarks Patient is doing well. No new neuro symptoms. Objective Vitals Vital Signs Date Time Temp Pulse Resp B/P (MAP) Pulse Ox O2 Delivery O2 Flow Rate FiO2 04/26/17 12:00 98.0 57 20 165/78 (107) 97 04/26/17 12:00 57 04/26/17 10:00 57 04/26/17 08:00 54 04/26/17 08:00 97.7 57 18 132/64 (86) 95 04/26/17 07:00 97 Room Air 04/26/17 06:00 51 04/26/17 04:00 98.5 52 20 140/71 (94) 94 04/26/17 04:00 52 04/26/17 02:00 50 04/26/17 00:00 97.7 50 20 118/65 (82) 95 04/26/17 00:00 50 04/25/17 22:00 58 04/25/17 20:00 57 04/25/17 20:00 97.9 57 20 128/65 (86) 97 04/25/17 19:00 97 Room Air 04/25/17 18:00 49 04/25/17 16:05 04/25/17 16:00 98.0 49 18 137/69 (91) 96 04/25/17 15:26 53 23 150/77 (101) 97 Room Air 04/25/17 15:00 98.0 51 18 137/69 (91) 97 04/25/17 14:32 56 22 159/76 (103) 96 Room Air 04/25/17 14:00 56 24 160/84 (109) 95 Room Air 04/25/17 13:31 52 19 156/78 (104) 96 Room Air I/O 04/25/17 04/25/17 04/25/17 04/26/17 04/26/17 04/26/17 07:00 15:00 23:00 07:00 15:00 23:00 Intake Total 1000 ml 1846 ml Output Total 200 ml 350 ml Balance 800 ml 1496 ml Intake Oral 100 ml IV Total 1000 ml 1746 ml Output Urine Total 200 ml 350 ml # Voids 1 Result Diagram: 04/26/17 05004/26/17 050 Imaging Last Impressions Neck CTA 04/25/17916 Signed Impressions: Service Date/Time: Tuesday, April 25, 2017 09:13 - CONCLUSION: Negative study Richard Escobar MD Head CTA 04/25/17916 Signed Impressions: Service Date/Time: Tuesday, April 25, 2017 09:13 - CONCLUSION: 1. 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 Findings were personally discussed with Drs. Warner and Antonio. Patient's symptoms have resolved with current NIH score of zero. There is concern for delayed collateral circulation failure. Following additional consultation with IR colleagues, patient is scheduled for urgent MRI perfusion to assess collateral flow. Francisco Stone MD Head Magnetic Resonance Angiography 04/25/17 0000 Signed Impressions: Service Date/Time: Tuesday, April 25, 2017 10:17 - CONCLUSION: 1. No evidence of flow volume mismatch or of of acute infarct. 2. Prolongation of flow in the left middle cerebral artery territory like related to collateral flow via pial vessels Alexandr Gasca MD Head CT 04/25/17 0000 Signed Impressions: Service Date/Time: Tuesday, April 25, 2017 09:13 - CONCLUSION: 1. No acute intracranial abnormality. Francisco Stone MD Chest X-Ray 04/25/17 0000 Signed Impressions: Service Date/Time: Tuesday, April 25, 2017 09:41 - CONCLUSION: Elevated right diaphragm and mild basilar parenchymal opacities of undetermined chronicity Richard Escobar MD Objective Remarks GENERAL: Noraml appearing male. In no acute distress. CARDIOVASCULAR: Regular rate and rhythm. RESPIRATORY: No accessory muscle use. Clear to auscultation. Breath sounds equal bilaterally. GASTROINTESTINAL: Abdomen soft, non-tender, nondistended. Hepatic and splenic margins not palpable. MUSCULOSKELETAL: Extremities without clubbing, cyanosis, or edema. No obvious deformities. NEUROLOGICAL: Awake and alert. No obvious cranial nerve deficits. Motor grossly within normal limits. Five out of 5 muscle strength in the arms and legs. Normal speech. PSYCHIATRIC: Appropriate mood and affect; insight and judgment normal. A/P Problem List: (1) TIA (transient ischemic attack) ICD Code: G45.9 - Transient cerebral ischemic attack, unspecified Status: Acute (2) Left M1 occlusion (3) Alcohol abuse ICD Code: F10.10 - Alcohol abuse, uncomplicated (4) Hypertension ICD Code: I10 - Essential (primary) hypertension (5) Dyslipidemia ICD Code: E78.5 - Hyperlipidemia, unspecified (6) History of TIA (transient ischemic attack) ICD Code: Z86.73 - Personal history of transient ischemic attack (TIA), and cerebral infarction without residual deficits Assessment and Plan 77 Y/O male admitted with CVA, symptoms resolved. Found to have acute left M1 occlusion. TIA Acute left M1 occlusion History of TIA - On IV heparin, continue home aspirin - Transition to Eliquis today per Neuro recs. Plan to repeat cta in a couple of weeks Hypertension - Resume home dose antihypertensives Dyslipidemia -Continue statin Discharge Planning Transfer to floor today, plan to dc tomorrow Problem Qualifiers (1) TIA (transient ischemic attack): Qualified Codes: G45.9 - Transient cerebral ischemic attack, unspecified Tammy Trivedi MD Apr 26, 2017 13:30
[2017-04-26 14:24] LABS: APTT (PATIENT) 42.4 SEC (24.3-30.1)
[2017-04-26] MEDS: BISOPROLOL FUMARATE 5 MG TAB PO SCH (15:18)
[2017-04-26] MEDS ORDERED: HEPARIN-D5W 25,000 U/250 ML 250 ML IV SCH (16:00)
[2017-04-26] MEDS: APIXABAN 5 MG TABLET PO SCH (22:18)
[2017-04-26] MEDS: PRAVASTATIN SOD 80 MG TAB PO SCH (22:18)
[2017-04-27] VITALS: BP 155/89; PULSE 51; RESP 20; TEMP 97.5; O2SAT 97
[2017-04-27 00:33] VITALS: BP 149/75; PULSE 53; RESP 18; TEMP 98.7; O2SAT 98
[2017-04-27] MEDS: CHLORHEXIDINE GLUCONATE 2 % 1 PACK (2 CLOTHS) TOP SCH (03:58)
[2017-04-27 04:00] VITALS: BP 151/81; PULSE 50; RESP 20; TEMP 98.4; O2SAT 98
[2017-04-27 08:00] VITALS: BP 165/81; PULSE 68; RESP 20; TEMP 97.7; O2SAT 98
[2017-04-27 08:07] LABS: HEMATOCRIT 38.4 % (39.0-51.0); MEAN CELL VOLUME 91.5 FL (80.0-100.0); MEAN CORPUSCULAR HEMOGLOBIN 31.3 PG (27.0-34.0); MEAN CORPUSCULAR HGB CONC 34.2 % (32.0-36.0); PLATELET COUNT 120 TH/MM3 (150-450); RED BLOOD COUNT 4.19 MIL/MM3 (4.50-5.90); RED CELL DISTRIBUTION WIDTH 12.5 % (11.6-17.2); REVIEW FLAG FINAL; WHITE BLOOD COUNT 6.2 TH/MM3 (4.0-11.0)
[2017-04-27] MEDS: BISOPROLOL FUMARATE 5 MG TAB PO SCH (08:25)
[2017-04-27] MEDS: ASPIRIN 81 MG CHEW TAB CHEW SCH (08:25)
[2017-04-27] MEDS: SODIUM CHLORIDE 0.9% FLUSH 10 ML FLUSH IV FLUSH SCH (08:26)
[2017-04-27] MEDS: FAMOTIDINE 20 MG TAB PO SCH (08:26)
[2017-04-27] MEDS: APIXABAN 5 MG TABLET PO SCH (08:26)
[2017-04-27 08:29] LABS: ANION GAP 7 MEQ/L (5-15); BICARBONATE 24.4 MEQ/L (21.0-32.0); BLOOD UREA NITROGEN 17 MG/DL (7-18); CHLORIDE 110 MEQ/L (98-107); GLOMERULAR FILTRATION RATE 82 ML/MIN (>89); POTASSIUM 3.7 MEQ/L (3.5-5.1); SODIUM (NA) 141 MEQ/L (136-145)
[2017-04-27 08:33] LABS: HDL CHOLESTEROL 31.6 MG/DL (40.0-60.0); LDL CHOLESTEROL 49 MG/DL (0-99)
[2017-04-27] MEDS: MULTIVITAMIN INJ 10 ML, THIAMINE INJ 100 MG, FOLIC ACID INJ 1 MG in SODIUM CHLORID 0.9%... IV SCH (09:28)
[2017-04-27 12:00] VITALS: BP 145/70; PULSE 54; RESP 20; TEMP 98.1; O2SAT 98
[2017-04-27 12:09] LABS: HEMOGLOBIN A1a 1.4 %; HEMOGLOBIN A1b 0.7 %; HEMOGLOBIN F 1.3 %; HEMOGLOBIN LA1C 1.9 %; HEMOGLOBIN P3 3.7 %
[2017-04-27] MEDS ORDERED: APIX5TAB PO (14:12)
--- NOTE | 2017-04-27 14:14 | HHI.DCPOC ---
Discharge Care Plan Diagnosis: (1) TIA (transient ischemic attack) (2) Left M1 occlusion (3) Hypertension (4) Dyslipidemia Goals to Promote Your Health * To prevent worsening of your condition and complications * To maintain your health at the optimal level Directions to Meet Your Goals Take your medications as prescribed Follow your dietary instruction Follow activity as directed Keep your appointments as scheduled Take your immunizations and boosters as scheduled If your symptoms worsen call your PCP, if no PCP go to Urgent Care Center or Emergency Room Smoking is Dangerous to Your Health. Avoid second hand smoke Call the 24-hour hour crisis hotline for domestic abuse at Tammy Trivedi MD Apr 27, 2017 14:14
--- NOTE | 2017-04-27 14:17 | HHI.DS ---
Discharge Summary Admission Date Apr 25, 2017 at 12:14 Discharge Date: Apr 27, 2017 Admitting Diagnosis stroke (1) TIA (transient ischemic attack) ICD Code: G45.9 - Transient cerebral ischemic attack, unspecified Diagnosis: Principal Status: Acute (2) Left M1 occlusion Diagnosis: Principal (3) Alcohol abuse ICD Code: F10.10 - Alcohol abuse, uncomplicated Diagnosis: Secondary (4) Hypertension ICD Code: I10 - Essential (primary) hypertension Diagnosis: Secondary (5) Dyslipidemia ICD Code: E78.5 - Hyperlipidemia, unspecified Diagnosis: Secondary (6) History of TIA (transient ischemic attack) ICD Code: Z86.73 - Personal history of transient ischemic attack (TIA), and cerebral infarction without residual deficits Diagnosis: Secondary Procedures None Brief History - From Admission Patient is a 77-year-old male with past medical history of hypertension, dyslipidemia, history of TIA who presented to [place] ED by ambulance as stroke alert. Noted to have right arm weakness that occurred at 4 AM; he went back to sleep. When he got up at 7 AM, he was confused and had difficulty with ppeech about 8 AM. En route to hospital his symptoms resolved. He has history of TIA in the past. CT head was negative for acute findings. CTA brain showed Distal left M1 occlusion with apparent collateral opacification of high convexity distal MCA branches. Because of current NIH score of zero, no intervention planned. If clinical deterioration, IR is to be contacted emergently. Started on IV Heparin and ASA by Dr. Aden CBC/BMP: 04/27/17 0723 04/27/17 0723 Significant Findings Laboratory Tests Test 04/25/17 09:15 04/25/17 12:05 04/25/17 19:45 04/25/17 23:06 Platelet Count 140 TH/MM3 (150-450) Bedside Glucose 125 MG/DL (60-95) Troponin I LESS THAN 0.02 NG/ML Urine Specific [place] 1.043 (1.002-1.035) Activated Partial Thromboplast Time 34.5 SEC (24.3-30.1) Test 04/26/17 05:07 04/26/17 14:00 04/27/17 07:23 Red Blood Count 4.05 MIL/MM3 (4.50-5.90) 4.19 MIL/MM3 (4.50-5.90) Hemoglobin 12.6 GM/DL (13.0-17.0) Hematocrit 37.2 % (39.0-51.0) 38.4 % (39.0-51.0) Platelet Count 127 TH/MM3 (150-450) 120 TH/MM3 (150-450) Eosinophils (%) (Auto) 5.1 % (0.0-4.0) Activated Partial Thromboplast Time 42.6 SEC (24.3-30.1) 42.4 SEC (24.3-30.1) Total Protein 5.6 GM/DL (6.4-8.2) Albumin 2.8 GM/DL (3.4-5.0) Calcium Level 7.9 MG/DL (8.5-10.1) 8.4 MG/DL (8.5-10.1) Chloride Level 110 MEQ/L (98-107) 110 MEQ/L (98-107) Estimat Glomerular Filtration Rate 82 ML/MIN (>89) 82 ML/MIN (>89) Troponin I LESS THAN 0.02 NG/ML Cholesterol Level 101 MG/DL (120-200) HDL Cholesterol 31.6 MG/DL (40.0-60.0) PE at Discharge GENERAL: Noraml appearing male. In no acute distress. CARDIOVASCULAR: Regular rate and rhythm. RESPIRATORY: No accessory muscle use. Clear to auscultation. Breath sounds equal bilaterally. GASTROINTESTINAL: Abdomen soft, non-tender, nondistended. Hepatic and splenic margins not palpable. MUSCULOSKELETAL: Extremities without clubbing, cyanosis, or edema. No obvious deformities. NEUROLOGICAL: Awake and alert. No obvious cranial nerve deficits. Motor grossly within normal limits. Five out of 5 muscle strength in the arms and legs. Normal speech. PSYCHIATRIC: Appropriate mood and affect; insight and judgment normal. Pt update on day of discharge Patient reports he is feeling great. No new neuro symptoms. DW his at bedside. Hospital Course 77 Y/O male admitted with CVA, symptoms resolved. Found to have acute left M1 occlusion. Patient followed by Neurology. He was started on Heparin drip and transitioned to Eliquis. Per Neurology recs he will continue on Aspirin and Eliquis. Follow up outpatient with Neurology for repeat CTA in 2 weeks. Hypertension - Resume home dose antihypertensives Dyslipidemia -Continue statin Pt Condition on Discharge: Good Discharge Disposition: Discharge Home Discharge Time: <= 30 minutes Discharge Instructions DIET: Follow Instructions for: As Tolerated, No Restrictions Activities you can perform: Regular-No Restrictions Follow up Referrals: Neurology - 2 Weeks with Janelle Alvarez MD New Medications: Apixaban (Eliquis) 5 Mg Tab 5 MG PO BID, #60 TAB Continued Medications: Aspirin (Aspirin Low Dose) 81 Mg Chew 81 MG CHEW DAILY, TAB 0 Refills Bisoprolol-Hydrochlorothiazide (Bisoprolol-Hydrochlorothiazide) 10-6.25 Mg Tab 1 TAB PO DAILY for Blood Pressure Management, #30 TAB 0 Refills Fenofibrate Micronized (Fenofibrate Micronized) 134 Mg Cap 134 MG PO DAILY, #30 CAP 0 Refills Simvastatin (Simvastatin) 40 Mg Tab 40 MG PO HS for Cholesterol Management, #30 TAB 0 Refills Tamsulosin (Tamsulosin) 0.4 Mg Cap 0.4 MG PO HS for Manage Prostate Problems, #30 CAP 0 Refills Tammy Trivedi MD Apr 27, 2017 14:17
[2017-04-27] MEDS ORDERED: HYDROCHLOROTHIAZIDE 12.5 MG CAP PO SCH (15:00)
== END 2017-04-27 14:39 | disposition home or self-care (01) | DRG 66 ==
LOC: NEPE 09:13 → NEDA 12:14 → N03B 15:38 → N05A 04-26 17:42
PROVIDERS: ADMIT Family Medicine; ATTEND Family Medicine
DX: I63.512 Cerebral infarction due to unspecified occlusion or stenosis of left middle cerebral artery (principal); R47.01 Aphasia; I10 Essential (primary) hypertension; E78.5 Hyperlipidemia, unspecified; N40.0 Benign prostatic hyperplasia without lower urinary tract symptoms; Z79.82 Long term (current) use of aspirin; Z86.73 Personal history of transient ischemic attack (TIA), and cerebral infarction without residual deficits; F10.10 Alcohol abuse, uncomplicated
CPT/HCPCS: 70450; 70496; 70498; 70552; 71010; 80048; 80053; 80061; 81001; 82435; 82550; 82565; 82607; 82746; 82947; 83036; 83090; 83735; 84132; 84295; 84443; 84484; 84520; 85025; 85027; 85384; 85610; 85730; 86850; 86900; 86901; 93005; 93306; 96374; A9579; J1644; J2250; J3010; J3411; J7030; J7040; Q9967